=== PATIENT | female | born 1955 | race Caucasian/White ===

== ENCOUNTER → 2016-07-18 | Outpatient (CLI) | payer BC ==
[~2016-07-18] MED LIST: ESTRATEST H.S.1 TAB PO; FE-TABS325 MG PO; FLONASE NASAL S16 GM NS; FOLIC ACID 40400 MCG PO; FORTAMET500 MG PO; LORTAB 7.5/5001 TAB PO; NORCO 325 MG-51 TAB PO; NORCO 325 MG-7.1 TAB PO; STOOL SOFTENER100 M1 PO; SYNTEST; SYNTHROID0.125 MG/T PO; TRIAMTERENE AND1 TA1 PO; VASOTEC10 MG PO; VITAMIN C PO
== END ==
LOC: MC.RAD 14:16
DX: Z12.31 Encounter for screening mammogram for malignant neoplasm of breast (principal)

== ENCOUNTER → 2016-07-19 | Outpatient (CLI) | payer BC | LOC: MC.RAD 13:29 | DX: R92.0 Mammographic microcalcification found on diagnostic imaging of breast (principal) ==

== ENCOUNTER → 2018-05-29 | Outpatient (CLI) | payer BC | LOC: MC.RAD 16:34 | DX: Z12.31 Encounter for screening mammogram for malignant neoplasm of breast (principal); Z98.890 Other specified postprocedural states; Z92.3 Personal history of irradiation ==

== ENCOUNTER → 2019-09-16 | Outpatient (CLI) | payer OTHER | LOC: MC.RAD 11:24 | DX: Z12.31 Encounter for screening mammogram for malignant neoplasm of breast (principal) ==